=== PATIENT | female | born 1990 ===

== ENCOUNTER 2018-01-27 13:25 | Emergency (ER) | payer OTHER ==
[2018-01-27 13:52] VITALS: BP 124/79; PULSE 82; RESP 18; TEMP 98; O2SAT 100
--- NOTE | 2018-01-27 14:25 | ED PDOC ---
HPI: Allergic Reaction Time Seen by Provider: 01/27/18 14:00 Chief Complaint (Nursing): Allergic Reaction Chief Complaint (Provider): Allergic Reaction History Per: Patient History/Exam Limitations: no limitations Onset/Duration Of Symptoms: Hrs Current Symptoms Are (Timing): Still Present Additional Complaint(s): 27 y/o female with no significant PMHx presents to the ED complaining of an allergic reaction, onset last night. Patient reports of using a new acne product yesterday and noticed that she began to break out last night. Patient reports of an itching and burning feeling to the face. Patient also states of using Peroxide to cleanse face and Benadryl with no relief. Denies using other facial products on affected areas. PMD: None Provided Past Medical History Reviewed: Historical Data, Nursing Documentation, Vital Signs Vital Signs: Last Vital Signs Temp 98 F 01/27/18 13:50 Pulse 82 01/27/18 13:50 Resp 18 01/27/18 13:50 BP 124/79 01/27/18 13:50 Pulse Ox 100 01/27/18 13:50 - Medical History PMH: No Chronic Diseases - Surgical History Surgical History: No Surg Hx - Family History Family History: States: Unknown Family Hx - Home Medications Home Medications: Ambulatory Orders Medication Instructions Recorded Cyclobenzaprine [Cyclobenzaprine 10 mg PO TID PRN #15 tab 09/15/15 HCl] Naproxen [Naprosyn Tab] 250 mg PO BID PRN #20 tab 09/15/15 Acetaminophen [Acetaminophen Extra 2 tab PO Q6 PRN #24 tablet 06/04/16 Strength] Amoxicillin/Clavulanate [Augmentin 1 tab PO BID #20 tab 06/04/16 875 MG-125 MG] DiphenhydrAMINE [Benadryl] 1 - 2 tab PO Q4 PRN #24 cap 06/04/16 Methylprednisolone [Medrol Dose 4 mg PO DAILY #21 mg 01/27/18 Pack (21 tabs)] Petrolatum,White [Aquaphor Baby 41 cre TP BID #1 oin 01/27/18 Healing Ointment] - Allergies Allergies/Adverse Reactions: Allergies Allergy/AdvReac Type Severity Reaction Status Date / Time plum Allergy ITCHING Verified 01/27/18 13:50 Review of Systems ROS Statement: Except As Marked, All Systems Reviewed And Found Negative Skin: Positive for: Other (allergic reaction associated with itching and burning feeling to face.) Physical Exam - Reviewed Nursing Documentation Reviewed: Yes Vital Signs Reviewed: Yes - Physical Exam Appears: Positive for: No Acute Distress Head Exam: Positive for: ATRAUMATIC, NORMOCEPHALIC Skin: Positive for: Rash (erythematous maculopapular rash to nasal labia fold, cheeks and chin ) ENT: Positive for: Normal ENT Inspection Neck: Positive for: Normal, Painless ROM Cardiovascular/Chest: Positive for: Regular Rate, Rhythm Respiratory: Positive for: Normal Breath Sounds Extremity: Positive for: Normal ROM. Negative for: Deformity Neurologic/Psych: Positive for: Alert, Oriented (x3). Negative for: Motor/ Sensory Deficits - ECG O2 Sat by Pulse Oximetry: 100 (RA) - Progress ED Course And Treament: Time: 1413 Plan: -- PredniSONE 40 mg PO -- Pepcid 20 mg PO -- Benadryl 50 mg PO Scribe Attestation: Documented by Michael Rogers, acting as a scribe for Nevaeh Kenney PA-C. Provider Scribe Attestation: All medical record entries made by the Scribe were at my direction and personally dictated by me. I have reviewed the chart and agree that the record accurately reflects my personal performance of the history, physical exam, medical decision making, and the department course for this patient. I have also personally directed, reviewed, and agree with the discharge instructions and disposition. Disposition - Clinical Impression Clinical Impression: Contact allergic reaction - Patient ED Disposition Is Patient to be Admitted: No - Disposition Disposition: Routine/Home Disposition Time: 15:03 Condition: STABLE Prescriptions: Methylprednisolone [Medrol Dose Pack (21 tabs)] 4 mg PO DAILY #21 mg Petrolatum,White [Aquaphor Baby Healing Ointment] 41 cre TP BID #1 oin Instructions: Contact Dermatitis (DC) Forms: [employer] [place] ([place]) - POA Present On Arrival: None
== END 2018-01-27 15:08 | disposition home or self-care (01) ==
LOC: H.ER 13:25
DX: T78.40XA Allergy, unspecified, initial encounter (principal)